=== PATIENT | female | born 1965 ===

== ENCOUNTER 2016-08-10 21:46 | Emergency (ER) | payer BC ==
[2016-08-10 21:56] VITALS: BP 144/79; PULSE 72; RESP 16; TEMP 97.7; O2SAT 100
== END 2016-08-10 23:10 | disposition left against medical advice (07) ==
LOC: H.ER 21:46
DX: Z02.89 Encounter for other administrative examinations (principal)

== ENCOUNTER 2016-08-11 19:52 | Observation (INO) | payer BC ==
[2016-08-11] MEDS ORDERED: Sodium Chloride 0.9% 1,000 ML IV STA (20:27)
[2016-08-11] MEDS ORDERED: Iohexol 240 (50 ml) PO ONE (20:29)
--- NOTE | 2016-08-11 20:44 | ED PDOC ---
HPI: Abdomen Chief Complaint (Provider): Abdominal Pain History Per: Patient ( ) History/Exam Limitations: no limitations Onset/Duration Of Symptoms: Waxing/Waning (x 14 days), Intermittent Episodes Current Symptoms Are (Timing): Still Present Location Of Pain/Discomfort: RLQ Quality Of Discomfort: Unable To Describe Associated Symptoms: denies: Fever, Chills, Nausea, Vomiting, Diarrhea, Loss Of Appetite, Back Pain, Chest Pain, Constipation, Urinary Symptoms Alleviating Factors: None Last Bowel Movement: Today Abnormal Vaginal Bleeding: No <Abdi Woodruff - Last Filed: 08/11/16 20:47> <Shakir Gooden - Last Filed: 08/11/16 23:51> Time Seen by Provider: 08/11/16 20:25 Chief Complaint (Nursing): Abdominal Pain Additional Complaint(s): 51 year old post-menopausal female with medical history of renal stones presents to ED with complaints of right lower quadrant abdominal pain that radiates to right leg. Patient states pain present x 2 wks, intermittent episodes, has not resolved though prior to arrival. Last BM today. No meds taken. Aggravated by palpation. No alleviating/inciting factors. Denies fever, chills, constipation, diarrhea, vomiting, headache, chest pain, nausea, vomiting , urinary symptoms, hematuria, back pain, or blood in stool. PMD: Mario (Abdi Woodruff) Supervising Attending Note <Abdi Woodruff - Last Filed: 08/11/16 20:47> - Supervising Attending Note The Documented history was done by the: Physician Patient Care Nursing Assistant The documented physical exam was done by the: Physician Patient Care Nursing Assistant The documented procedures were done by the: Physician Patient Care Nursing Assistant - Attestation: I have personally seen and examined this patient.: Yes I have fully participated in the care of the patient.: Yes I have reviewed all pertinent clinical information: Yes <Shakir Gooden - Last Filed: 08/11/16 23:51> - Notes: Notes:: Abd pain RLQ. (Shakir Gooden) Past Medical History Reviewed: Historical Data, Nursing Documentation, Vital Signs - Medical History PMH: Asthma, Bronchitis, Cardia Arrhythmia (Tachycardia), Kidney Stones - Surgical History Other surgeries: ectopic - Family History Family History: States: Unknown Family Hx - Social History Current smoker - smoking cessation education provided: No Alcohol: None Drugs: Denies - Immunization History Hx Tetanus Toxoid Vaccination: No Hx Influenza Vaccination: No Hx Pneumococcal Vaccination: No <Abdi Woodruff - Last Filed: 08/11/16 20:47> <Shakir Gooden - Last Filed: 08/11/16 23:51> Vital Signs: Last Vital Signs Temp 97.5 F L 08/11/16 20:11 Pulse 65 08/11/16 20:11 Resp 14 08/11/16 20:11 BP 128/73 08/11/16 20:11 Pulse Ox 100 08/11/16 20:48 - Home Medications Home Medications: Ambulatory Orders Medication Instructions Recorded Famotidine [Pepcid] 20 mg PO DAILY #20 tab 04/13/14 - Allergies Allergies/Adverse Reactions: Allergies Allergy/AdvReac Type Severity Reaction Status Date / Time codeine Allergy VOMITING Verified 08/11/16 20:12 Review of Systems ROS Statement: Except As Marked, All Systems Reviewed And Found Negative ( except as mentioned in HPI) <Abdi Woodruff - Last Filed: 08/11/16 20:47> Physical Exam - Reviewed Nursing Documentation Reviewed: Yes Vital Signs Reviewed: Yes - Physical Exam Appears: Positive for: Well, Non-toxic, No Acute Distress Head Exam: Positive for: ATRAUMATIC, NORMAL INSPECTION, NORMOCEPHALIC Skin: Positive for: Normal Color, Warm, Dry Eye Exam: Positive for: Normal appearance, EOMI, PERRL ENT: Positive for: Normal ENT Inspection Neck: Positive for: Normal, Painless ROM, Supple Cardiovascular/Chest: Positive for: Regular Rate, Rhythm Respiratory: Positive for: Normal Breath Sounds Gastrointestinal/Abdominal: Positive for: Normal Exam, Bowel Sounds (present), Soft, Tenderness (RLQ), Guarding (voluntary) Back: Positive for: Normal Inspection. Negative for: L CVA Tenderness, R CVA Tenderness Extremity: Positive for: Normal ROM. 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, Oriented <Abdi Woodruff - Last Filed: 08/11/16 20:47> - Physical Exam Gastrointestinal/Abdominal: Positive for: Soft, Tenderness (RLQ) <Shakir Gooden - Last Filed: 08/11/16 23:51> - ECG O2 Sat by Pulse Oximetry: 100 Pulse Ox Interpretation: Normal <Abdi Woodruff - Last Filed: 08/11/16 20:47> - Laboratory Results Result Diagrams: 08/11/16 20:48 08/11/16 20:48 Interpretation Of Abn Labs: no acute - ECG Pulse Ox Interpretation: Normal - CT Scan/US US Other Rad Studies (CT/US): Read By Radiologist Other Rad Interpretation: no acute <Shakir Gooden - Last Filed: 08/11/16 23:51> - Progress ED Course And Treament: Time: 2019 Initial impression: 51 year old post menopausal female with medical history of renal stones with RLQ pain x 2 wks, intermittent. DDx includes but not limited to: ovarian torsion, ovarian cyst, appendicitis, colitis, renal colic Plan: * CBC * CMP * PELVIS/TV ULTRASOUND * CT SCAN ABD/PELVIS W/ PO/IV CONTRAST * URINE DIP * URINE PREG * TORADOL 30MG * NS 1L * REEVAL (Abdi Woodruff) 2349: Stable. AAOx3. Pain free. Fu with ct. (Shakir Gooden) Disposition <Abdi Woodruff - Last Filed: 08/11/16 20:47> - Patient ED Disposition Is Patient to be Admitted: Transfer of Care - Disposition Disposition: Transfer of Care Disposition Time: 23:51 Patient Signed Over To: Humphrey Queen <Shakir Gooden - Last Filed: 08/11/16 23:51> - Clinical Impression Clinical Impression: Abdominal pain - Disposition Condition: FAIR
[2016-08-11 20:58] LABS: BASO % 0.6 % (0.0-2.0); EOS # 0.4 K/uL (0.0-0.7); EOS % 5.2 % (0.0-4.0); HEMATOCRIT 41.7 % (34.0-47.0); LYMPH # 2.3 K/uL (1.0-4.3); LYMPH % 32.3 % (20.0-40.0); MEAN CELL VOLUME 83.6 fl (81.0-99.0); MEAN CORPUSCULAR HEMOGLOBIN 27.3 pg (27.0-31.0); MEAN CORPUSCULAR HGB CONC 32.7 g/dL (33.0-37.0); MEAN PLATELET VOLUME 8.4 fl (7.2-11.7); MONO # 0.6 K/uL (0.0-0.8); MONO % 7.8 % (0.0-10.0); NEUT # 3.9 K/uL (1.8-7.0); NEUT % 54.1 % (50.0-75.0); NRBC % 0.1 % (0.0-0.0); RED CELL DISTRIBUTION WIDTH 13.1 % (11.5-14.5); WHITE BLOOD COUNT 7.2 K/uL (4.8-10.8)
[2016-08-11 21:03] LABS: ALB/GLOB RATIO 1.6 (1.0-2.1); ALKALINE PHOSPHATASE 72 U/L (38-126); ALT/SGPT 30 U/L (9-52); AST/SGOT 25 U/L (14-36); BILIRUBIN,TOTAL 0.4 mg/dl (0.2-1.3); BLOOD UREA NITROGEN 15 mg/dl (7-17); CALCIUM 9.1 mg/dL (8.4-10.2); CARBON DIOXIDE 26 mmol/L (22-30); CHLORIDE 105 mmol/L (98-107); GFR AFRICAN-AMERICAN > 60; GLUCOSE,RANDOM 106 mg/dL (65-105); POTASSIUM 3.6 MMOL/L (3.6-5.0); SODIUM 144 mmol/l (132-148); TOTAL PROTEIN 7.6 G/DL (6.3-8.2)
[2016-08-11] MEDS ORDERED: Iodixanol 320 MG/ML 100 ML BOTTLE IV ONE (22:58)
[2016-08-11] MEDS ORDERED: Sodium Chloride 0.9% 50 ML IV ONE (22:58)
[2016-08-12 00:17] VITALS: O2SAT 99
[2016-08-12] MEDS ORDERED: Sodium Chloride 0.9% 1,000 ML IV SCH (00:30)
[2016-08-12 02:37] VITALS: RESP 18
[2016-08-12 07:36] VITALS: BP 111/70; PULSE 68; TEMP 98.1
[2016-08-12 08:10] LABS: BASO % 0.4 % (0.0-2.0); EOS # 0.3 K/uL (0.0-0.7); EOS % 5.8 % (0.0-4.0); HEMATOCRIT 39.5 % (34.0-47.0); LYMPH # 1.8 K/uL (1.0-4.3); LYMPH % 35.6 % (20.0-40.0); MEAN CELL VOLUME 83.8 fl (81.0-99.0); MEAN CORPUSCULAR HEMOGLOBIN 27.3 pg (27.0-31.0); MEAN CORPUSCULAR HGB CONC 32.6 g/dL (33.0-37.0); MEAN PLATELET VOLUME 8.4 fl (7.2-11.7); MONO # 0.4 K/uL (0.0-0.8); MONO % 8.7 % (0.0-10.0); NEUT # 2.4 K/uL (1.8-7.0); NEUT % 49.5 % (50.0-75.0); RED CELL DISTRIBUTION WIDTH 13.2 % (11.5-14.5); WHITE BLOOD COUNT 4.9 K/uL (4.8-10.8)
[2016-08-12 08:20] LABS: ALB/GLOB RATIO 1.5 (1.0-2.1); ALKALINE PHOSPHATASE 62 U/L (38-126); ALT/SGPT 26 U/L (9-52); AST/SGOT 25 U/L (14-36); BILIRUBIN,TOTAL 0.4 mg/dl (0.2-1.3); BLOOD UREA NITROGEN 9 mg/dl (7-17); CALCIUM 8.5 mg/dL (8.4-10.2); CARBON DIOXIDE 27 mmol/L (22-30); CHLORIDE 107 mmol/L (98-107); GFR AFRICAN-AMERICAN > 60; GLUCOSE,RANDOM 88 mg/dL (65-105); POTASSIUM 3.7 MMOL/L (3.6-5.0); SODIUM 143 mmol/l (132-148); TOTAL PROTEIN 6.5 G/DL (6.3-8.2)
--- NOTE | 2016-08-12 09:40 | CP.PCM.PN ---
Addendum entered and electronically signed by Ric Yates DO 08/12/16 11:04: Patient clear from surgery standpoint. Outpatient follow up for right hip/leg pain recommended. Discussed with Dr. Wendy Yates, PGY1 Original Note: <Lyric Villa - Last Filed: 08/12/16 09:44> Subjective - Date & Time of Evaluation Date of Evaluation: 08/12/16 Time of Evaluation: 07:00 - Subjective Subjective: GENERAL SURGERY CONSULT NOTE FOR DR. NGUYEN 51yo F with PMHx of kidney stones presents to the ED with RLQ pain going to her right hip/leg. The pain has been about 2-3 weeks ago and has been intermittent. Patient states that the pain has gotten gradually progressively worse and yesterday become more severe prompting her to come to the ED. She denies nausea , vomiting, or diarrhea. Denies urinary symptoms or hematuria. She is tolerating her diet, has a normal appetite, and having normal bowel movements. She notes that the pain hurts most in her hip when she walks. The pain was in the lower RLQ, right hip, and superior lateral thigh. At this time, patient reports that the pain is gone. PMHx: kidney stones, previous asthma Surgeries: ectopic in 2000, via lower midline incision Allergies: codeine Objective - Vital Signs/Intake and Output Vital Signs (last 24 hours): Temp Pulse Resp BP Pulse Ox 98.1 F 68 18 111/70 99 08/12/16 07:35 08/12/16 07:35 08/12/16 07:35 08/12/16 07:35 08/12/16 07:35 - Medications Medications: Current Medications Sodium Chloride (Sodium Chloride 0.9%) 1,000 mls @ 110 mls/hr IV .Q9H6M MIGUELINA Stop: 08/13/16 00:17 Ketorolac Tromethamine (Toradol) 30 mg IVP Q6 PRN PRN Reason: Pain, moderate (4-7) Ondansetron HCl (Zofran Inj) 4 mg IVP Q4 PRN PRN Reason: Nausea/Vomiting - Labs Labs: 08/12/16 05:30 08/12/16 05:30 - Constitutional Appears: Non-toxic, No Acute Distress - Head Exam Head Exam: ATRAUMATIC, NORMAL INSPECTION - Eye Exam Eye Exam: EOMI, Normal appearance - Respiratory Exam Respiratory Exam: NORMAL BREATHING PATTERN. absent: Respiratory Distress - Cardiovascular Exam Cardiovascular Exam: +S1, +S2. absent: Tachycardia - GI/Abdominal Exam GI & Abdominal Exam: Soft. absent: Distended, Firm, Guarding, Rigid, Tenderness , Hernia (no right inguinal hernia ), Rebound Additional comments: Negative for McBurneys point Lower midline incision, well healed - Neurological Exam Neurological Exam: Alert, Awake, Oriented x3 - Psychiatric Exam Psychiatric exam: Normal Affect, Normal Mood - Skin Skin Exam: Dry, Normal Color, Warm Assessment and Plan - Assessment and Plan (Free Text) Assessment: 51yo F with PMHx of kidney stones who presented with RLQ pain going to her right hip/leg. Surgery consulted for rule out appendicitis - Afebrile, VSS - No leukocytosis yesterday or today, labs WNL - Toradol (patient has not taken any pain medication since ED) - Zofran PRN - CT Abd/Pelvis reviewed with Dr. Nguyen, no signs of acute appendicitis - Patient non tender on deep palpation of RLQ - Pain unlikely due to appendicitis. Possibly due to Right hip arthritis or other hip pathology - Discussed plan with Dr. Wendy Villa PGY-2 <Gerardo Nguyen - Last Filed: 08/13/16 19:16> Objective - Vital Signs/Intake and Output Vital Signs (last 24 hours): Temp Pulse Resp BP Pulse Ox 98.1 F 68 18 111/70 99 08/12/16 07:35 08/12/16 07:35 08/12/16 07:35 08/12/16 07:35 08/12/16 07:35 - Labs Labs: 08/12/16 05:30 08/12/16 05:30 Attending/Attestation - Attestation I have personally seen and examined this patient.: Yes I have fully participated in the care of the patient.: Yes I have reviewed all pertinent clinical information, including history, physical exam and plan: Yes Notes (Text): 08/13/16 19:15 Pt was seen and examined at bedside on 08/12/16 Agree with above note and assessment Pt with Right hip pain No clinical evidence of Appendicitis Pt can be DC home F.U with PMD
--- NOTE | 2016-08-12 17:29 | CT ---
PROCEDURE: CT abdomen pelvis dated 08/11/2016 HISTORY: abd pain COMPARISON: Correlation made with subsequent pelvic ultrasound 08/11/2016 TECHNIQUE: Contiguous axial images of the abdomen and pelvis performed following oral and intravenous injection of approximately 98 cc of Visipaque 320 contrast material. . Coronal and Sagittal reformats generated. Radiation dose: Total exam DLP = 1007.38 mGy-cm. This CT exam was performed using one or more of the following dose reduction techniques: Automated exposure control, adjustment of the mA and/or kV according to patient size, and/or use of iterative reconstruction technique. FINDINGS: LOWER THORAX: Minor curvilinear atelectasis/ scarring changes right lung base. No focal consolidation effusion or basilar pneumothorax. Small focal areas of pleural thickening both posterior sulci. Heart size within range of normal. No pericardial effusion. Small hiatal hernia. Slight wall thickening of the distal esophagus that could be due to protrusion of gastric mucosa however possibility of esophagitis not excluded. LIVER: Liver exhibits normal size measuring approximately 14.6 cm in CC dimension. There appears to be some mild fatty hepatic infiltration. No obvious hepatic mass or collection. Portal and splenic veins are opacified. GALLBLADDER AND BILE DUCTS: Gallbladder appears incompletely distended. No evidence of intraluminal gallbladder calculi. PANCREAS: Visualized portions of the pancreas appear grossly unremarkable without mass collection or significant ductal dilatation. SPLEEN: Spleen exhibits normal size and attenuation pattern without mass collection or calcification. ADRENALS: There are no adrenal lesions. KIDNEYS AND URETERS: Kidneys exhibit symmetric nephrograms. . Small approximately 5 mm calcification upper pole right kidney. . There is mild columnization of the right ureter. No evidence of left-sided nephrolithiasis or hydronephrosis BLADDER: The urinary bladder is physiologically distended. No evidence of intraluminal urinary bladder calculi. REPRODUCTIVE: There is a tiny a ring-like calcifications seen along the uterine fundus could represent tiny calcified fibroid. APPENDIX: Appendix not seen with certainty however no secondary signs of acute appendicitis right lower quadrant of the abdomen. BOWEL: Evaluation of the bowel is limited due to incomplete opacification. Stomach the contains contrast material, food debris liquid and air. Visualized loops of small bowel exhibit normal contour and caliber. No evidence of acute mechanical small bowel obstruction. Large amount of stool seen within the cecum ascending and transverse colon consistent with mild constipation. No definitive mural wall thickening. PERITONEUM: No gross free intraperitoneal air. No free or loculated fluid collections. . Small fat containing umbilical hernia. LYMPH NODES: Unremarkable. No enlarged lymph nodes. VASCULATURE: Unremarkable. No abdominal aortic aneurysm. BONES: Minor degenerative spondylosis seen L5-S1 level. There are no acute compression fractures no retropulsed fragments. Osseous structures otherwise unremarkable. OTHER FINDINGS: None. IMPRESSION: Findings consistent with constipation. Appendix is not visible however no obvious secondary signs of acute appendicitis. Small hiatal hernia with wall thickening of the distal esophagus that could be due to protrusion of gastric mucosa however esophagitis or other intrinsic/invasive wall lesion not excluded Mild fatty hepatic infiltration. Nonobstructing 5 mm calculus upper pole right kidney. Mild columnization most of the proximal and mid right ureter. Correlation with urinalysis recommended. . Suspect small incidental calcified fundal fibroid. Small fat containing umbilical hernia.
--- NOTE | 2016-08-12 18:14 | US ---
PROCEDURE: Pelvic ultrasound dated 08/11/2016 at the 22:14 hours HISTORY: pelvic pain COMPARISON: No prior study available comparison however the study was read in conjunction with subsequent CT scan abdomen pelvis TECHNIQUE: Transabdominal sonographic evaluation of the pelvis performed FINDINGS: . The uterus measures approximately 5.9 x 5.0 x 2.5 cm. Uterus is retroverted. No myometrial masses. Endometrial stripe measures 2.5 mm. There is a tiny calcified fibroid seen along the anterior superior margin of uterine body/near the fundus measuring 9 mm x 9 mm x 9 mm IMPRESSION: Small calcified uterine fibroid.
--- NOTE | 2016-08-12 23:00 | HP ---
HISTORY OF PRESENT ILLNESS: This is a 51-year-old female with no significant past medical history, presented to Emergency Room with right lower quadrant pain. The patient was evaluated in the Emergency Room and CAT scan of the abdomen and pelvis was done and there was no visualization of the appendix. The patient had surgical consultation done and admitted for further management. REVIEW OF SYSTEMS: Other review of systems is negatives, especially for urinary symptoms. The patient did not have any dysuria or any increased frequency of urination. The patient was diagnosed with urinary calculi before. PAST MEDICAL HISTORY: Urinary calculi, vitamin D deficiency. SOCIAL HISTORY: No history of smoking, ETOH or substance abuse. FAMILY HISTORY: Noncontributory. MEDICATIONS: None. PHYSICAL EXAMINATION: GENERAL: The patient is in bed, comfortable, not in any cardiopulmonary distress. VITAL SIGNS: Blood pressure 111/70, temperature 98.1, respiratory rate 18 and pulse is 68. HEENT: Pupils equal, reactive to light. Normal-appearing mucosa of the conjunctivae, oropharyngeal and nasal membrane mucosa. NECK: Supple, no JVD, no carotid bruit, no lymph node, no thyromegaly. CHEST AND LUNGS: Bilateral symmetrical expansion, good air exchange, no rales, no rhonchi. CARDIOVASCULAR: PMI not localized. S1, S2. No additional sounds. ABDOMEN: Normoactive bowel sounds, no tenderness, no organomegaly, no masses. EXTREMITIES: No cyanosis, no clubbing, no edema. The patient has some right groin tenderness, but there is full range of motion of the right hip and there is no right lower quadrant tenderness. CENTRAL NERVOUS SYSTEM: Alert, awake, oriented x 3. No neurological deficits could be appreciated. ASSESSMENT: 1. Right lower quadrant pain, likely musculoskeletal in origin, most probably osteoarthritis of the right hip. 2. Vitamin D deficiency. PLAN: Continue current physical therapy as an outpatient and follow with her primary care physician. The patient also will be given nonsteroidal anti- inflammatory for pain. Terrence Mikal Martin MD cc: [id number] TT: 08/12/2016 23:00:03 ln [email or web address]
--- NOTE | 2016-08-12 23:29 | DS ---
REASON FOR ADMISSION: The patient is a 51-year-old female who was admitted for right lower quadrant pain. COURSE OF HOSPITALIZATION: The patient was admitted to medical floor and CAT scan of the abdomen and pelvis was done that did not show any appendicitis or urinary calculi. The patient had a surgical c onsultation done and she was cleared by surgery for discharge. She was discharged pain free. FINAL DIAGNOSES: 1. Osteoarthritis of the right hip. 2. Possible lumbosacral degenerative spine disease with possible radiculopathy. [facility] Mikal Martin MD cc: 167 TT: 08/12/2016 23:28:49 ln
== END 2016-08-12 17:38 | disposition home or self-care (01) ==
LOC: H.ER 19:52 → H.ERHOLD 08-12 00:15 → H.MEDSURG1 08-12 02:00
PROVIDERS: ADMIT Internal Medicine; ATTEND Internal Medicine
DX: R10.31 Right lower quadrant pain (principal); E55.9 Vitamin D deficiency, unspecified; J45.909 Unspecified asthma, uncomplicated; M16.11 Unilateral primary osteoarthritis, right hip; Z87.442 Personal history of urinary calculi; Z88.6 Allergy status to analgesic agent
CPT/HCPCS: 36415; 74177; 76830; 76856; 80053; 81025; 85025; 96360; 99284; G0378; J1885; J7040; Q9966; Q9967

== ENCOUNTER 2017-08-22 08:52 | Emergency (ER) | payer BC ==
[2017-08-22 09:02] VITALS: O2SAT 100
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
--- NOTE | 2017-08-22 10:29 | CT ---
PROCEDURE: CT ORBITS WITHOUT CONTRAST. HISTORY: Left orbital injury COMPARISON: None available. TECHNIQUE: Axial CT images of the orbits were obtained. Coronal and sagittal reformats were generated. Radiation dose: Total exam DLP = 75.66 mGy-cm. This CT exam was performed using one or more of the following dose reduction techniques: Automated exposure control, adjustment of the mA and/or kV according to patient size, and/or use of iterative reconstruction technique. FINDINGS: RIGHT ORBIT: RIGHT BONY ORBIT: No acute displaced fracture. The orbital zamora are intact. RIGHT INTRAORBITAL STRUCTURES: Globe: Normal. Extraocular muscles: Normal. Post septal space: Normal. Optic Nerve: Normal. Lacrimal Apparatus: Normal. RIGHT PRESEPTAL SOFT TISSUES: Normal. LEFT ORBIT: LEFT BONY ORBIT: No acute displaced fracture. The orbital zamora are intact. LEFT INTRAORBITAL STRUCTURES: Globe: Normal. Extraocular muscles: Normal. Post septal space: Normal Optic Nerve: Normal. . Lacrimal Apparatus: Normal. LEFT PRESEPTAL SOFT TISSUES: Mild left supraorbital soft tissue swelling OTHER: There is minimal right and moderate polypoid soft tissue in the left maxillary sinuses. There is periapical abscess in the left maxillary 2nd and 3rd molar. IMPRESSION: 1. No acute orbital wall fracture. No evidence of injury to the globes or intra/extra conal hematoma. No evidence of lens dislocation 2. Mild left supraorbital soft tissue swelling.
[2017-08-22 10:54] VITALS: BP 127/77; PULSE 77; RESP 17; TEMP 98.5
== END 2017-08-22 10:56 | disposition home or self-care (01) ==
LOC: H.ER 08:52
DX: S05.10XA Contusion of eyeball and orbital tissues, unspecified eye, initial encounter (principal); S09.90XA Unspecified injury of head, initial encounter; Y04.0XXA Assault by unarmed brawl or fight, initial encounter; Y92.89 Other specified places as the place of occurrence of the external cause